=== PATIENT | female | born 1945 | race Caucasian/White ===

== ENCOUNTER 2024-07-11 15:50 | Inpatient (IN) | payer MEDICARE, BC ==
[2024-07-11 18:21] LABS: HEMATOCRIT 39.9 % (37.0-47.0); HEMOGLOBIN 13.5 g/dL (12.0-16.0); MEAN CORPUSCULAR HEMOGLOBIN 31.3 pg (28.0-32.0); MEAN CORPUSCULAR HGB CONC 33.8 g/dL (32.0-36.0); MEAN CORPUSCULAR VOLUME 92.4 fL (83.0-99.0); MEAN PLATELET VOLUME 10.2 fL (9.4-12.3); PLATELET COUNT,PLT 339 K/uL (150-400); RED BLOOD CELL COUNT 4.32 M/uL (4.10-5.30); WHITE BLOOD CELL COUNT,WBC 14.72 K/uL (3.9-11.3)
[2024-07-11] MEDS: Ondansetron 4 MG/2 ML SDV IVPUSH ONE (18:22)
[2024-07-11] MEDS: Morphine 2 MG/ML SYRINGE IVPUSH ONE (18:22)
[2024-07-11] MEDS: Sodium Chloride 0.9% 500 ML IV SCH (18:25)
[2024-07-11 18:40] LABS: INR > 8.00 (0.86-1.11)
[2024-07-11] MEDS: Morphine 4 MG/ML Syringe IVPUSH ONE (18:53)
[2024-07-11 19:25] LABS: A/G RATIO 0.7 (0.9-1.6); ALANINE AMINOTRANSFERASE,ALT 69 IU/L (14-63); ALBUMIN 2.7 g/dL (3.4-5.0); ALKALINE PHOSPHATASE 306 U/L (46-116); ASPARTATE AMNIOTRANSFERASE,AST 33 IU/L (15-37); BILIRUBIN TOTAL 0.6 mg/dL (0.2-1.0); BLOOD UREA NITROGEN,BUN 108 mg/dL (7.0-18.0); CARBON DIOXIDE,CO2 8.1 mmol/L (21.0-32.0); CHLORIDE,CL 95 mmol/L (98-107); CREATININE 9.9 mg/dL (0.6-1.0); GLUCOSE RANDOM 273 mg/dL (74-106); LIPASE 61 U/L (16-77); POTASSIUM,K 5.9 mmol/L (3.5-5.1); PROTEIN TOTAL,TP 6.5 g/dL (6.4-8.2); SODIUM,NA 129 mmol/L (136-145)
[2024-07-11 19:29] LABS: ESTIMATED GFR 4 mL/min (>60)
[2024-07-11] MEDS: Phytonadione 10 MG in Sodium Chloride 0.9% 50 ML IV ONE ×2 (20:02→20:07)
[2024-07-11] MEDS: Sodium Zirconium Cyclosilicate 10 GM Packet PO SCH (20:30)
[2024-07-11 20:37] LABS: APPEARANCE,URINE SLT CLOUDY; BILIRUBIN,URINE NEGATIVE (NEGATIVE); COLOR,URINE YELLOW; GLUCOSE,URINE 100 mg/dL (NEGATIVE); KETONES,URINE TRACE mg/dL (NEGATIVE); LEUKOCYTE ESTERASE,URINE SMALL (NEGATIVE); NITRITE,URINE NEGATIVE (NEGATIVE); OCCULT BLOOD,URINE SMALL (NEGATIVE); PROTEIN,URINE 100 mg/dL (NEGATIVE); UROBILINOGEN,URINE 0.2 EU/dL (<2.0)
[2024-07-11] MEDS: PHYTONADIONE IM ONE (20:37)
[2024-07-11] MEDS: SODIUM CHLORIDE 0.9% IM ONE (20:37)
[2024-07-11] MEDS ORDERED: Glucagon,Human Recombinant 1 MG Vial IM PRN (20:37)
[2024-07-11] MEDS ORDERED: 50% Dextrose in Water 50 ML Syringe IVPUSH PRN (20:37)
[2024-07-11 20:57] LABS: AMORPHOUS SEDIMENT,URINE LIGHT (NEGATIVE); BACTERIA,URINE 2+ (NEGATIVE); MUCUS,URINE NOT SEEN (NONE-MOD); SQUAMOUS EPITHELIAL CELLS,UR RARE
[2024-07-11] MEDS ORDERED: Naloxone 0.4 MG/ML SDV IVPUSH PRN (21:10)
[2024-07-11] MEDS: HYDROmorphone 1 MG/ML Syringe IVPUSH ONE (21:16)
[2024-07-11] MEDS: cefTRIAXone 2 GM in Sodium Chloride 0.9% 50 ML IV ONE (21:17)
[2024-07-11] MEDS: Calcium Gluconate 10% 1 GM/10 ML SDV IVPUSH ONE (21:17)
[2024-07-11] MEDS: Insulin Regular, Human 100 Units/ML 10 ML Vial IVPUSH ONE (21:34)
[2024-07-11] MEDS: metroNIDAZOLE/Normal Saline 500 MG in Premix Bag 1 BAG IV ONE (22:17)
[2024-07-11] MEDS: Sodium Chloride 0.9% 1,000 ML IV SCH (23:48)
[2024-07-12] MEDS: Sodium Bicarbonate 150 MEQ in Dextrose 5% in Water 1,000 ML IV ONE (01:19)
[2024-07-12] MEDS ORDERED: Glucagon,Human Recombinant 1 MG Vial IM PRN (02:15)
[2024-07-12] MEDS ORDERED: 50% Dextrose in Water 50 ML Syringe IVPUSH PRN (02:15)
[2024-07-12] MEDS: Insulin Aspart 100 Units/ML 3 ML Pen SUBCUT SCH (03:39)
[2024-07-12 05:44] LABS: BASOPHILS ABSOLUTE AUTO 0.03 K/uL (0.00-0.20); BASOPHILS PERCENT AUTO 0.2 % (0.0-1.0); HEMOGLOBIN 11.7 g/dL (12.0-16.0); IMMATURE GRAN ABSOLUTE AUTO 0.17 K/uL (0.00-0.05); LYMPHOCYTES ABSOLUTE AUTO 1.14 K/uL (1.00-4.80); MEAN CORPUSCULAR HEMOGLOBIN 30.3 pg (28.0-32.0); MEAN CORPUSCULAR HGB CONC 32.5 g/dL (32.0-36.0); MEAN CORPUSCULAR VOLUME 93.3 fL (83.0-99.0); MEAN PLATELET VOLUME 10.2 fL (9.4-12.3); MONOCYTES ABSOLUTE AUTO 1.17 K/uL (0.00-0.80); MONOCYTES PERCENT AUTO 7.2 % (0.0-8.0); NEUTROPHILS ABSOLUTE AUTO 13.72 K/uL (1.80-7.70); NEUTROPHILS PERCENT AUTO 84.6 % (41.0-71.0); PLATELET COUNT,PLT 281 K/uL (150-400); RED BLOOD CELL COUNT 3.86 M/uL (4.10-5.30); WHITE BLOOD CELL COUNT,WBC 16.23 K/uL (3.9-11.3)
[2024-07-12 06:06] LABS: INR 2.5 (0.86-1.11)
[2024-07-12 06:17] LABS: A/G RATIO 0.7 (0.9-1.6); ALBUMIN 2.5 g/dL (3.4-5.0); BILIRUBIN TOTAL 0.5 mg/dL (0.2-1.0); CARBON DIOXIDE,CO2 9.8 mmol/L (21.0-32.0); CREATININE 10.5 mg/dL (0.6-1.0); EST CRCL DRUG DOSING (CG) 3.93 mL/min; POTASSIUM,K 6.9 mmol/L (3.5-5.1); PROTEIN TOTAL,TP 6.1 g/dL (6.4-8.2)
[2024-07-12] MEDS: metroNIDAZOLE/Normal Saline 500 MG in Premix Bag 1 BAG IV SCH ×2 (06:27→19:27)
[2024-07-12] MEDS: Sodium Chloride 0.9% 1,000 ML IV ONE (06:43)
[2024-07-12] MEDS: HYDROmorphone 1 MG/ML Syringe IVPUSH PRN (08:32)
[2024-07-12] MEDS: Insulin Aspart 100 Units/ML 3 ML Pen SUBCUT ONE (11:27)
[2024-07-12] MEDS: Sodium Bicarbonate 150 MEQ in Dextrose 5% in Water 1,000 ML IV SCH (14:11)
[2024-07-12] MEDS: cefTRIAXone 1 GM in Sodium Chloride 0.9% 50 ML IV SCH (21:08)
[2024-07-13] MEDS: HYDROmorphone 1 MG/ML Syringe IVPUSH PRN (11:01)
== END 2024-07-14 10:00 | disposition expired | DRG 683 ==
LOC: MW.ED 15:50 → MW.MS 23:06
PROVIDERS: ADMIT Internal Medicine; ATTEND Internal Medicine
DX: N17.0 Acute kidney failure with tubular necrosis (principal); N17.9 Acute kidney failure, unspecified; N39.0 Urinary tract infection, site not specified; Z66 Do not resuscitate; I10 Essential (primary) hypertension; Z51.5 Encounter for palliative care; E11.9 Type 2 diabetes mellitus without complications; I12.9 Hypertensive chronic kidney disease with stage 1 through stage 4 chronic kidney disease, or unspecified chronic kidney disease; E11.22 Type 2 diabetes mellitus with diabetic chronic kidney disease; N18.9 Chronic kidney disease, unspecified; I48.91 Unspecified atrial fibrillation; K80.20 Calculus of gallbladder without cholecystitis without obstruction; E78.00 Pure hypercholesterolemia, unspecified; R79.1 Abnormal coagulation profile; E87.5 Hyperkalemia; I95.9 Hypotension, unspecified; Z79.01 Long term (current) use of anticoagulants; Z88.2 Allergy status to sulfonamides; Z79.4 Long term (current) use of insulin; Z79.899 Other long term (current) drug therapy; Z79.84 Long term (current) use of oral hypoglycemic drugs
CPT/HCPCS: 36415; 74176; 80053; 81001; 82947 ×2; 83605; 83690; 85027; 85610; 93005; A9270; J0612; J0696; J1171; J1836; J2270 ×2; J2405; J3430; J3490 ×2; J7040; 51702; 85025; 87040; 96361; 96365; 96367; 96375; 96376; 99222; 99233; 99238; 99284; 99285-25; J1815-GY; J7030; J7060